=== PATIENT | female | born 1995 | race African-American/Black ===

== ENCOUNTER 2021-01-02 13:27 | Emergency (ER) | payer OTHER ==
[~2021-01-02] VITALS: Ht 170.2 cm; Wt 77.0 kg
[2021-01-02 13:33] VITALS: BP 128/83
== END 2021-01-02 18:54 | disposition left against medical advice (07) ==
LOC: ER 13:27
DX: Z53.21 Procedure and treatment not carried out due to patient leaving prior to being seen by health care provider (principal)